=== PATIENT | female | born 1990 | race Caucasian/White ===

== ENCOUNTER 2020-07-04 18:48 | Emergency (ER) | payer OTHER, SELFPAY ==
[2020-07-04 18:50] VITALS: BP 139/81; PULSE 75; RESP 18; TEMP 36.9; O2SAT 100
--- NOTE | 2020-07-04 19:06 | ED.EAR ---
HPI - Ear Problem General Stated complaint: Qtip in ear Time Seen by Provider: 07/04/20 19:01 Source: patient and RN notes reviewed Mode of arrival: ambulatory Limitations: no limitations History of Present Illness HPI Narrative: Patient presents today complaining of a possible piece of cotton from a Q-tip in her right ear for the past hour. Denies pain. Reports she put the Q-tip into get water out of her ear after shower. Denies decreased hearing or drainage from the ear. Complaint: foreign body Related Data Home Medications Medication Instructions Recorded Confirmed acyclovir 07/04/20 bupropion HCl PO 07/04/20 Allergies Allergy/AdvReac Type Severity Reaction Status Date / Time No Known Allergies Allergy Verified 07/04/20 19:06 Review of Systems Review of Systems: Narrative: CONSTITUTIONAL: Denies body aches, fever, chills, or sweats. EYES: Denies visual changes, redness, or discharge. ENT: Denies rhinorrhea, congestion, sore throat. + Foreign body to right ear CARDIOVASCULAR: Denies chest pain, palpitations, or edema. RESPIRATORY: Denies cough or dyspnea. GASTROINTESTINAL: Denies abdominal pain, nausea, vomiting, or diarrhea. GENITOURINARY: Denies dysuria or hematuria. SKIN: Denies rash, itching, or wounds. MUSCULOSKELETAL: Denies back pain, joint pain, or myalgia. NEUROLOGIC: Denies headache, numbness, tingling, or weakness. PSYCH: Denies depression or anxiety. PMFSH Comments At time of signature, I have reviewed and agree with nursing past medical, surgical, social and family history unless otherwise noted. Please see nursing chart for further information. There is no relevant family history pertinent to the presenting complaint Exam Narrative: Exam Narrative: GENERAL: Well-appearing, well-nourished, and in no acute distress. HEAD: Normocephalic, atraumatic. EYES: EOMI. No redness or drainage. Conjunctivae normal. ENT: Mucous membranes pink and moist. Nares clear. No rhinorrhea. TMs normal bilaterally. Right ear canal is slightly irritated. No foreign bodies present. Throat normal. Uvula midline. NECK: Normal AROM. Supple. No lymphadenopathy. CHEST: No respiratory distress. EXTREMITIES: Normal range of motion. No edema. SKIN: Warm, dry, no rash. Capillary refill normal. Normal skin turgor. NEURO: No focal deficits. Alert and oriented x3. Gait steady. PSYCH: Normal affect. No signs of depression or anxiety. Course Vital Signs Vital signs: Vital Signs Temperature 98.4 F 07/04/20 18:50 Pulse Rate 75 07/04/20 18:50 Respiratory Rate 18 07/04/20 18:50 Blood Pressure 139/81 07/04/20 18:50 Pulse Oximetry 100 07/04/20 18:50 Temperature 98.4 F 07/04/20 18:50 Pulse Rate 75 07/04/20 18:50 Respiratory Rate 18 07/04/20 18:50 Blood Pressure 139/81 07/04/20 18:50 Pulse Oximetry 100 07/04/20 18:50 Reviewed. Pt has been instructed to follow up with her PCP regarding her elevated blood pressure today. Medical Decision Making Differential Diagnosis Differential Diagnosis: Otitis media, otitis externa, foreign body, cerumen impaction, ruptured TM Vital Signs Vital Signs: Vital Signs Temperature 98.4 F 07/04/20 18:50 Pulse Rate 75 07/04/20 18:50 Respiratory Rate 18 07/04/20 18:50 Blood Pressure 139/81 07/04/20 18:50 Pulse Oximetry 100 07/04/20 18:50 Temperature 98.4 F 07/04/20 18:50 Pulse Rate 75 07/04/20 18:50 Respiratory Rate 18 07/04/20 18:50 Blood Pressure 139/81 07/04/20 18:50 Pulse Oximetry 100 07/04/20 18:50 Critical Care Time Critical Care Time Critical Care Time: No Discharge Plan Discharge Clinical Impression: Worried well Patient Disposition: Home, Self-Care Condition: Stable Additional Instructions: No foreign bodies were found in your ear. Please only use the Q-tips on the outer portion of your ear, as you could damage your eardrum. Your blood pressure was elevated above 120/80 tod
== END 2020-07-04 19:10 | disposition home or self-care (01) ==
PROVIDERS: Emergency Provider Nurse Practitioner; PCP Internal Medicine
DX: Z71.1 Person with feared health complaint in whom no diagnosis is made (principal)
CPT/HCPCS: 99211; G0463